=== PATIENT | male | born 1945 | race Caucasian/White ===

== ENCOUNTER → 2016-09-25 | Outpatient (CLI) | payer OTHER ==
--- NOTE | 2016-09-26 06:32 | DI ---
XR KNEE CMPT 4 OR MORE VWS,09/25/2016 2:53 PM: Clinical History: Left knee pain Previous Exam: None at this facility. Findings: 3 views the left knee are obtained, and demonstrate anatomic alignment without fractures. There is lo ss of joint space within the left medial compartment. Sclerosis and osteophyte formation are noted. Peripheral vascular calcifications are seen. There is no evidence of knee joint effusion. Impression: Tricompartmental degenerative disc disease worst within the medial compartment.
== END ==
LOC: ORTHO 15:09
PROVIDERS: ATTEND Orthopaedic Surgery
DX: M25.562 Pain in left knee (principal); M17.12 Unilateral primary osteoarthritis, left knee
CPT/HCPCS: 73564

== ENCOUNTER → 2016-10-03 | Outpatient (CLI) | payer OTHER ==
--- NOTE | 2016-10-04 08:57 | DI ---
CT LOWER EXTR W/O CONTRAST,10/03/2016 12:49 PM: Clinical History: Primary osteoarthritis of the left knee. Previous Exam: None at this facility. Findings: Multiple helically acquired CT images are obtained through the left lower extremity without contrast. The left hip is within normal limits except for some mild degenerative osteoarthritis. The left knee demonstrates tricompartmental degenerative osteoarthritis. There is a small left knee j oint effusion. Multiple osteophytes are seen. There are some subchondral cysts noted. Peripheral vas cular calcifications are also noted. Evaluation of the left ankle demonstrate mild degenerative orlando es. There are some subchondral cysts noted as well. The ankle is within normal limits. Impression: Degenerative changes of the left hip knee and ankle worst involving the knee.
== END ==
LOC: CT 12:37
PROVIDERS: ATTEND Orthopaedic Surgery
DX: M25.562 Pain in left knee (principal); M17.12 Unilateral primary osteoarthritis, left knee; M25.462 Effusion, left knee
CPT/HCPCS: 73700

== ENCOUNTER 2016-11-14 05:56 | Inpatient (IN) ==
[2016-11-14] MEDS ORDERED: ceFAZolin Inj 2gm (Premix) 2 GM/50 ML BAG IV ONE ×2 (05:59→06:00)
[2016-11-14] MEDS ORDERED: Lactated Ringers 1,000 ML PRIMARY IV ONE ×3 (05:59→10:14)
[2016-11-14] MEDS ORDERED: LIDOCAINE W/ SODIUM BICARB 0.5 ML SYR ONE (05:59)
[2016-11-14] MEDS ORDERED: BUPivacaine Liposome/PF (Exparel) Inj 20ml vial INFIL ONE ×2 (06:00→06:52)
[2016-11-14] MEDS ORDERED: Tranexamic Acid 3,000 MG in Sodium Chloride 0.9% 100 ML IRRIG ONE ×2 (06:00→08:00)
[2016-11-14] MEDS ORDERED: Ketorolac Inj 30 MG, Morphine Inj 5 MG, BUPivacaine Inj 0.25% PF 150 MG SPLASH ONE ×6 (06:00)
[2016-11-14] MEDS ORDERED: LIDOCAINE W/ SODIUM BICARB 0.5 ML SYR SUBD ONE (06:00)
[2016-11-14] MEDS ORDERED: Lactated Ringers 1,000 ML PRIMARY IV SCH ×2 (06:00→08:30)
[2016-11-14] MEDS ORDERED: Gentamicin Inj 40 MG/ML VIAL ONE (06:52)
[2016-11-14] MEDS ORDERED: Sodium Chloride 0.9% vial 10 ML ONE (06:52)
[2016-11-14] MEDS ORDERED: Bacteriostatic NaCl Inj 30ml Vial ONE (06:52)
[2016-11-14] MEDS ORDERED: BUPIVACAINE 0.25% W/ EPI - 10 ML VIAL ONE (07:10)
[2016-11-14] MEDS ORDERED: fentaNYL Inj 100 MCG/2 ML VIAL ONE (07:10)
[2016-11-14] MEDS ORDERED: BUPivacaine Inj 0.25% PF - 10ml vial ONE (07:10)
[2016-11-14] MEDS ORDERED: MIDAZOLAM 5 MG/1 ML ONE (07:10)
[2016-11-14] MEDS ORDERED: Propofol 200 MG/20 ML VIAL IV ONE (07:43)
[2016-11-14] MEDS ORDERED: HYDROmorphone 2 MG/1 ML ONE (08:03)
[2016-11-14] MEDS ORDERED: Sodium Chloride 0.9% 500 ML ONE (08:16)
[2016-11-14] MEDS ORDERED: Sodium Chloride 0.9% 0 ML ONE (08:17)
--- NOTE | 2016-11-14 08:19 | CRNA.PROCE ---
Nerve Block Documentation - - Safety Measures: Time Out Taken, Site Verified - - Type of Nerve Block Used: Left Sciatic Nerve Block Position for Nerve Block: Lateral Moniters Used During Block: EKG, SPO2, NIBP Sedation Used - Enter Amount in Comment Field [ANES.SEDAT]: Midazolam (mg): Yes (3mg iv), Fentanyl (mcg): Yes (100mcg iv) Skin Prep Used: ChloroPrep Technique: Nerve Stimulator Nerve Block Needle Used: 100 mm ProBlk II Stimulation Hz: 1.0 Stimulation Staring mA: 1.4 Stimulation Ending mA: 0.5 Local Anesthetic - Enter Amt in Comment Field [ANES.LOCNB]: 0.25 % Bupivacaine Plain (mL): Yes (15ml) Anesthesia Time - Other Weight: 98.43 kg Height: 5 ft 10 in Body Mass Index (BMI): 31.1
--- NOTE | 2016-11-14 08:20 | CRNA.PROCE ---
Nerve Block Documentation - - Safety Measures: Time Out Taken, Site Verified - - Type of Nerve Block Used: Left Femoral Nerve Block Position for Nerve Block: Supine Moniters Used During Block: EKG, SPO2, NIBP Oxygen Sumpplented: Yes Skin Prep Used: ChloroPrep Technique: Nerve Stimulator Nerve Block Needle Used: 80 mm ProBlk II Stimulation Hz: 1.0 Stimulation Staring mA: 1.2 Stimulation Ending mA: 0.5 Local Anesthetic - Enter Amt in Comment Field [ANES.LOCNB]: 0.25 % Bupivicaine with Epinephrine 1:200,000 (mL): Yes (30ml) Anesthesia Time - Other Weight: 98.43 kg Height: 5 ft 10 in Body Mass Index (BMI): 31.1
[2016-11-14] MEDS ORDERED: HYDROmorphone 2 MG/1 ML IVP PRN ×2 (08:21→12:17)
[2016-11-14] MEDS ORDERED: PROMETHAZINE 25 MG/1 ML VIAL IM PRN (08:21)
[2016-11-14] MEDS ORDERED: fentaNYL Inj 100 MCG/2 ML VIAL IVP PRN (08:21)
[2016-11-14] MEDS ORDERED: NORMAL SALINE 10 ML SYRINGE FLUSH IVP PRN (08:21)
--- NOTE | 2016-11-14 08:21 | CRNA.PROGR ---
Anesthesia Time - - Start date: 11/14/16 End date: 11/14/16 - Procedure/Recovery Time Anesthesia : Time In: 07:50 Anesthesia : Time Out: 11:30 Anesthesia : Total Time: 220 - Block Time PreOp Block : Time In: 07:15 PreOp Block : Time Out: 07:35 PreOp Block : Total Time: 20 - Total Anesthesia Time Total Anesthesia Time (minutes): 240 - Other Weight: 98.43 kg Height: 5 ft 10 in Body Mass Index (BMI): 31.1 Physical Status: P3 Anesthesia Type: General Anesthesia : LMA (SNB and FNB for post op analgesia) PostOp Pain Management: Femoral (Single Injection)
[2016-11-14] MEDS ORDERED: ONDANSETRON 4 MG/2 ML VIAL ONE (10:54)
--- NOTE | 2016-11-14 11:41 | CRNA.PROGR ---
Anesthesia Recovery Phase I - Post Anesthesia Evaluation Patient's Condition on Arrival in Phase I: Stable Pain Level: 0
[2016-11-14] MEDS ORDERED: BISACODYL 5 MG TABLET PO PRN (12:17)
[2016-11-14] MEDS ORDERED: Ondansetron ODT Tab 8 MG TAB PO PRN (12:17)
[2016-11-14] MEDS ORDERED: BISACODYL 10 MG SUPPOSITORY RECTAL PRN (12:17)
[2016-11-14] MEDS ORDERED: ONDANSETRON 4 MG/2 ML VIAL IVP PRN (12:17)
[2016-11-14] MEDS ORDERED: Prochlorperazine Tab 10 MG TAB PO PRN (12:17)
[2016-11-14] MEDS ORDERED: diphenhydrAMINE 25 MG CAPSULE PO PRN (12:17)
[2016-11-14] MEDS ORDERED: MAG HYDROX/AL HYDROX/SIMETH 30 ML SUSP PO PRN (12:17)
[2016-11-14] MEDS ORDERED: CALCIUM CARBONATE 500 MG (TUMS) CHEWABLE TABLET PO PRN (12:17)
[2016-11-14] MEDS ORDERED: ACETAMINOPHEN 325 MG TABLET PO PRN (12:17)
[2016-11-14] MEDS: GABAPENTIN 300 MG CAPSULE PO SCH ×2 (14:04→20:25)
[2016-11-14] MEDS: Lactated Ringers 1,000 ML PRIMARY IV SCH (14:05)
[2016-11-14] MEDS: ceFAZolin Inj 2gm (Premix) 2 GM/50 ML BAG IV SCH ×2 (15:00→23:51)
--- NOTE | 2016-11-14 15:36 | ORTHO.PROG ---
Last Taken Vital Signs: Vital Signs - Last Taken Temperature 97.6 F 11/14/16 14:00 Pulse Rate 72 11/14/16 14:00 Respiratory Rate 18 11/14/16 14:00 Blood Pressure 121/76 11/14/16 14:00 Pulse Ox 94 11/14/16 14:00 Subjective: Patient doing well after total knee replacement on left. Patient denies any pain Objective: Dressing is clean and dry ices in place he does have motor of the ankle and toes but denies any sensory pain or sensation with palpation. Good pulses brisk refill. Vital Signs (24 hrs) Temp Pulse Pulse Resp BP BP Pulse Ox 11/14/16 14:00 97.6 F 72 18 121/76 94 11/14/16 13:30 68 16 116/72 93 11/14/16 13:15 97.6 F 71 16 131/75 93 11/14/16 13:00 73 16 134/56 93 11/14/16 12:45 97.6 F 68 16 124/82 93 11/14/16 12:40 97.7 F 12 93 11/14/16 12:30 60 16 135/80 93 11/14/16 12:19 97.6 F 68 16 126/77 94 11/14/16 12:04 97.7 F 67 12 120/74 93 11/14/16 12:00 67 12 130/71 96 11/14/16 11:56 67 19 98 11/14/16 11:55 67 12 132/73 96 11/14/16 11:54 64 13 132/73 93 11/14/16 11:50 65 12 127/77 95 11/14/16 11:44 56 L 12 119/75 100 11/14/16 11:40 97.2 F 59 L 14 111/64 98 11/14/16 11:34 67 12 125/75 94 11/14/16 11:30 96.9 F 63 12 132/88 93 11/14/16 07:04 97.6 F 70 14 146/84 94 Assessment: Left total knee replacement doing well Plan: Patient will begin physical therapy and occupational therapy, he needs to have an immobilizer put in place to prevent injury since he has a femoral and sciatic nerve block. Pain control and DVT prophylaxis with Coumadin since he takes is for atrial fibrillation.
--- NOTE | 2016-11-14 15:37 | ORTHO.OP ---
- - -: See Dictated Operative Report (Total knee replacement CPT code 33161, equal opportunity assistant surgeon Phoebe JONES)
[2016-11-14] MEDS: DOCUSATE 100 MG CAPSULE PO SCH (20:25)
[2016-11-14] MEDS: ATORVASTATIN 10 MG TABLET PO SCH (20:25)
[2016-11-14] MEDS ORDERED: Warfarin Tab 3 MG TAB PO SCH (21:00)
[2016-11-14] MEDS ORDERED: Warfarin 5 MG TAB PO SCH (21:00)
[2016-11-15] MEDS: Lactated Ringers 1,000 ML PRIMARY IV SCH (01:30)
[2016-11-15] MEDS: HYDROcodone-APAP 7.5 MG-325 MG TABLET PO PRN ×5 (02:32→20:40)
[2016-11-15 04:42] LABS: Hematocrit [HCT] 36.4 % (42.0-52.0); Hemoglobin [HGB] 12.3 g/dL (14.0-18.0); MEAN CORPUSCULAR HEMOGLOBIN 29.9 PG (27-31); MEAN CORPUSCULAR HGB CONC 33.8 g/dL (33-37); MEAN CORPUSCULAR VOLUME 88.6 FL (80-90); RED BLOOD COUNT 4.11 10^6/uL (4.70-6.10)
[2016-11-15 05:53] LABS: BLOOD UREA NITROGEN 15 mg/dL (7-22); BUN/CREATININE RATIO 21.42 (6-20)
--- NOTE | 2016-11-15 07:55 | ORTHO.PROG ---
Last Taken Vital Signs: Vital Signs - Last Taken Temperature 98.3 F 11/15/16 03:59 Pulse Rate 86 11/15/16 03:59 Respiratory Rate 16 11/15/16 03:59 Blood Pressure 130/78 11/15/16 03:59 Pulse Ox 93 11/15/16 04:02 Subjective: Patient with a little pain bilaterally in the back of the knee otherwise is doing well. Patient has knee immobilizer in place Objective: Patient with good motion of foot and ankle. Dressing is clean and dry. Knee immobilizer placed. No calf, popliteal adductor hiatus or thigh pain or discomfort Laboratory Results 11/15/16 11/15/16 Range/Units 04:39 04:39 WBC 9.73 (4.8-10.8) 10^3/uL RBC 4.11 L (4.70-6.10) 10^6/uL Hgb 12.3 L (14.0-18.0) g/dL Hct 36.4 L (42.0-52.0) % MCV 88.6 (80-90) FL MCH 29.9 (27-31) PG MCHC 33.8 (33-37) g/dL RDW Std Deviation 43.8 (39-50) fL RDW Coeff of Aminata 13.8 (11.5-14.5) % Plt Count 235 (140-350) 10*3/uL MPV 11.0 (7.4-12.2) FL Sodium 135 (135-145) meq/L Potassium 3.5 L (3.8-5.2) meq/L Chloride 101 (98-112) meq/L Carbon Dioxide 26 (23-33) meq/L Anion Gap 8 (5-20) BUN 15 (7-22) mg/dL Creatinine 0.7 (0.70-1.50) mg/dL BUN/Creatinine Ratio 21.42 H (6-20) Glucose 114 H (78-110) mg/dL Calculated Osmolality 281.0 (267-292) mOsm/kg Calcium 9.4 (8.7-10.7) mg/dL Vital Signs (24 hrs) Temp Pulse Pulse Resp BP BP Pulse Ox 11/15/16 04:02 93 11/15/16 03:59 98.3 F 86 16 130/78 93 11/15/16 00:01 99.0 F 79 20 127/86 92 11/14/16 20:31 97.9 F 80 20 148/92 92 11/14/16 17:00 97.6 F 74 18 146/98 92 11/14/16 15:00 91 11/14/16 14:00 97.6 F 72 18 121/76 94 11/14/16 13:30 68 16 116/72 93 11/14/16 13:15 97.6 F 71 16 131/75 93 11/14/16 13:00 73 16 134/56 93 11/14/16 12:45 97.6 F 68 16 124/82 93 11/14/16 12:40 97.7 F 12 93 11/14/16 12:30 60 16 135/80 93 11/14/16 12:19 97.6 F 68 16 126/77 94 11/14/16 12:04 97.7 F 67 12 120/74 93 11/14/16 12:00 67 12 130/71 96 11/14/16 11:56 67 19 98 11/14/16 11:55 67 12 132/73 96 11/14/16 11:54 64 13 132/73 93 11/14/16 11:50 65 12 127/77 95 11/14/16 11:44 56 L 12 119/75 100 11/14/16 11:40 97.2 F 59 L 14 111/64 98 11/14/16 11:34 67 12 125/75 94 11/14/16 11:30 96.9 F 63 12 132/88 93 Assessment: Left total knee replacement doing well Plan: Patient will continue with physical therapy and occupational therapy. Yesterday beverages had stand by the side of the bed but we will progress with activities today. As far as anticoagulation he'll continue on his Coumadin normal dosing discussed with the hospitalist. We'll proceed along these lines at the current time.
--- NOTE | 2016-11-15 08:36 | DI ---
XR KNEE 1 OR 2 VWS,11/14/2016 11:15 AM: Clinical History: Total knee arthroplasty. Previous Exam: September 25, 2016 Findings: 2 views of the left knee are obtained, and demonstrate postsurgical changes consistent with a left to carrillo knee arthroplasty. There is some air within the superior patellar bursa. Peripheral vascular calcifications are noted. No fractures are seen. Impression: Postsurgical changes consistent with recent left total knee arthroplasty.
[2016-11-15] MEDS: METOPROLOL SUCCINATE 100 MG SR 24H TABLET PO SCH (09:03)
[2016-11-15] MEDS: DOCUSATE 100 MG CAPSULE PO SCH ×2 (09:03→20:40)
[2016-11-15] MEDS: HYDROCHLOROTHIAZIDE 25 MG TABLET PO SCH (09:03)
[2016-11-15] MEDS: BENAZEPRIL 10 MG TABLET PO SCH (09:04)
[2016-11-15] MEDS: GABAPENTIN 300 MG CAPSULE PO SCH ×3 (09:04→20:40)
[2016-11-15] MEDS: DIGOXIN 250 MCG TABLET PO SCH (09:04)
[2016-11-15] MEDS: metFORMIN ER 500 MG TABLET PO SCH (09:08)
[2016-11-15] MEDS ORDERED: FUROSEMIDE 10 MG/1 ML - 4 ML IVP ONE (12:15)
--- NOTE | 2016-11-15 13:02 | CONSULT ---
Consult Note - Consult Reason for Consult: PostOp Consulation : Ortho Requesting Physician: estrada Primary Care Provider: Miguel Ware HPI - History of Present Illness History of Present Illness: This very nice 71-year-old gentleman who lives in [place] he just underwent a left total knee hospitalist services were consult for history of A. fib patient on Coumadin. Patient is having no issues no chest pain nausea vomiting doing well postop Past Medical History Medical History: Measles, mumps, A. fib, gastritis, diabetes type II, hypertension Surgical History: Left total knee, colonoscopy, EGD, vasectomy back surgery in the past Tobacco Use: Former Smoker In the Past 12 Months, Have Used or Abuse Any of the Following Substance: None Review of Systems - Review of Systems All Systems: Reviewed & No Additional Complaints Except as Stated - Mouth/Throat Mouth/Throat Exam: DENIES: Negative System Review, Dental Problems, Oral Ulcers , Sore Throat, Hoarseness, Dysphagia, Dental Pain, Other, See HPI - Respiratory Respiratory: DENIES: Negative System Review, Cough, Sputum, Dyspnea At Rest, Dyspnea with Exertion, Pleuritic Pain, Hemoptysis, Wheezing, Other, See HPI - Gastrointestinal Gastrointestinal / Abdominal: DENIES: Negative System Review, Nausea, Vomiting, Diarrhea, Constipation, Abdominal Pain, Bloody Stool, Poor Appetite, Heartburn, Regurgitation, Bloating, Lactose Intolerance, Melena, Bright Red Blood per Rectum, Other, See HPI - Genitourinary Genitourinary: DENIES: Negative System Review, Pain, Burning, Hematuria, Incontinence, Urgency, Hesitant Stream, Decreased Stream, Nocutria, Discharge, Sexual Dysfunction, Other, See HPI Medication / Allergies Home Medications: Home Medications Medication Instructions Recorded Confirmed Type Amlodipine Besylate/Benazepril 1 cap PO DAILY cap 09/25/16 11/14/16 History [Lotrel] Atorvastatin Calcium [Lipitor] 1 tab PO QHS tab 09/25/16 11/14/16 History Digoxin 1 tab PO DAILY tab 09/25/16 11/14/16 History Gabapentin [Neurontin] 1 cap PO TID cap 09/25/16 11/14/16 History Hydrochlorothiazide 1 tab PO DAILY tab 09/25/16 11/14/16 History Metformin HCl [Metformin Hcl Er] 3 tab PO DAILY tab 09/25/16 11/14/16 History Metoprolol Succinate [Toprol Xl] 1 tab PO DAILY tab 09/25/16 11/14/16 History Warfarin Sodium 1 tab PO as directed tab 09/25/16 11/14/16 History Warfarin Sodium [Coumadin] 1 tab PO DAILY tab 09/25/16 11/14/16 History Mupirocin Nasal Oint 2% [Bactroban 1 gm TRAMAINE BID 10/19/16 10/19/16 History Nasal Oint 2%] Allergies/Adverse Reactions: Allergies 3 Allergy/AdvReac Type Severity Reaction Status Date / Time No Known Allergies Allergy Verified 11/14/16 18:42 Exam - Vitals Vital Signs: Vital Signs Temperature 98.2 F Temperature Source Temporal Artery Scan Pulse Rate [Pulse Oximeter] 73 Pulse Rate 88 Respiratory Rate 18 Blood Pressure [Left Arm] 135/84 Blood Pressure [Right Arm] 133/77 Blood Pressure 120/74 Pulse Ox 94 Oxygen Flow Rate 1 Oxygen Delivery Method Nasal Cannula Height 5 ft 10 in Weight 217 lb - General General Appearance: No Acute Distress, Cooperative - Head Head Exam: Normal Inspection, Normocephalic - Respiratory Respiratory Exam: POSITIVE: Clear to Auscultation - Bilaterally, Breathing Non Labored, Normal To Percussion, Normal to Percussion and Palpation - Cardiovascular Cardiovascular Exam: POSITIVE: RRR, No Murmur, No Clicks, No Gallops - GI/Abdominal GI/Abdominal Exam: POSITIVE: Non Tender, Non Distended, Soft - Extremities Extremities Exam: POSITIVE: No Clubbing Present, +2 Edema - Neurological Neurological Exam: POSITIVE: Alert, Oriented x 3, Reflexes Normal, CN II-XII Intact Results - Labs CBC and BMP: 11/15/16 04:39 11/15/16 04:39 Assessment and Plan - Patient Problems (1) Status post total left knee replacement Current Visit: Yes Status: Acute Code(s): Z96.652 - Presence of left artificial knee joint (2) Hypertension Current Visit: Yes Status: Acute Comment: Controlled continue current meds patient on a beta darleen and the Lotrel Code(s): I10 - Essential (primary) hypertension (3) A-fib Current Visit: Yes Status: Acute Comment: Resume Coumadin patient does not need bridging also resume digoxin check daily INR Code(s): I48.91 - Unspecified atrial fibrillation
--- NOTE | 2016-11-15 13:33 | PT.PROG ---
Progress Note Progress Note: S: Miguel reports that he is regaining sensation and that he can now feel most of his ant thigh and foot. He also reports increasing pain levels in his L knee as he regains sensation. O: Treatment consisted of: sit to stand transfer to AD with min assist x2; ambulation with AD and min assist x2; 20ft. Miguel was left in hospital bed; bed alarm on and call light within reach. A: Miguel tolerated therapy well today. Miguel has difficulty with ambulation secondary to lack of sensation in his LLE due to nerve block. Miguel needs assistance with bed mobility to lift his LLE. P: Continue POC as tolerated.
--- NOTE | 2016-11-15 13:57 | CRNA.PROGR ---
Anesthesia Note - Progress Notes Anesthesia Progress Note: Up in wheel chair working with PT at this time. SNB/FNB have fully resolved. He has no questions or concerns regarding his anesthetic course. CBC and BMP 11/15/16 04:39 11/15/16 04:39 Vital Signs (24 hrs) Temp Pulse Pulse Resp BP BP Pulse Ox 11/15/16 12:40 98.2 F 73 18 135/84 94 11/15/16 09:04 88 11/15/16 08:11 98.0 F 89 20 133/77 94 11/15/16 04:02 93 11/15/16 03:59 98.3 F 86 16 130/78 93 11/15/16 00:01 99.0 F 79 20 127/86 92 11/14/16 20:31 97.9 F 80 20 148/92 92 11/14/16 17:00 97.6 F 74 18 146/98 92 11/14/16 15:00 91 11/14/16 14:00 97.6 F 72 18 121/76 94
--- NOTE | 2016-11-15 14:37 | PTI REPORT ---
Thank you for the referral of Miguel Randolph. He was seen on 11/14/16 for an inpatient evaluation status post left total knee arthroplasty. SUBJECTIVE: The patient is a 71-year-old male. The patient reports that he is feeling okay after surgery and that he is experiencing a pain level of 0/10 on the verbal analog scale (0=no pain, 10=worst pain). The patient denies experiencing any symptoms of dizziness. The patient states that he currently has sensation in his toes and proximal thigh but the rest of his left lower extremity is completely numb. The patient states he lives in a single floor house with three steps to enter the front door and a railing on either side. In his bathroom the patient has a countertop next to his toilet that he can use for assistance with transfers. PAST MEDICAL HISTORY: Past medical history can be found in the patient's medical record. OBJECTIVE FINDINGS: General observations: The patient was alert and oriented and lying supine in bed on three liters of oxygen. Bed mobility: The patient required mod assist to transfer from supine to sitting edge of bed. Transfer: The patient required mod assist to transfer from sit to stand. The patient denied experiencing symptoms of dizziness throughout transfers. Vitals: The patient's blood pressure in supine was 140/81. His blood pressure in seated position edge of bed was 150/108. After resting for two minutes his blood pressure went down to 155/80. The patient's blood pressure in standing was 155/88. ASSESSMENT: The patient has a good prognosis. Problem List: Pain in the left lower extremity Decreased passive and active range of motion in the left lower extremity Decreased strength in the left lower extremity Patient must adhere to total knee precautions Short-Term Goals: To be met by discharge from inpatient: Patient will be able to transfer from bed to stand independently. Patient will be able to ambulate approximately 100 feet with walker, weight- bearing as tolerated. Patient will be able to ascend and descend five stairs with walker, weight- bearing as tolerated. Patient will be instructed in total knee precautions. Long-Term Goals: To be met following discharge from inpatient: Patient will be seen by outpatient physical therapy. TREATMENT PLAN: Patient will be seen B.I.D during the week and one time per day over the weekend as an inpatient for transfers, gait training, stair training, and instruction in total knee precautions. INITIAL TREATMENT: Treatment today consisted of the initial evaluation followed by the patient transferring from supine to sit with mod assist x2 and from sit to stand with mod assist x2. Following treatment the patient was returned to his hospital bed and was left with bed alarm on and call light within reach. Dictated by: BRIJESH Lee Supervised by: DENNY Henderson
--- NOTE | 2016-11-15 15:09 | PT.PROG ---
Progress Note Progress Note: S. Patient stated that he is sore this afternoon. He reports he has some pain in the back of his knee and above his knee. O. Patient was wheeled to the therapy gym by OT and had heat and then performed supine exercises in the form of; heel slides, quad sets, ankle pumps, short arc quads all x 10, sit to stands x 5. then ambulated 50 feet to the wheelchair and was returned to his room where he was left in bed with alarm and call light and Ice on his knee. A. 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 Patient would continue to benefit from skilled therapy at this time. P. Continue POC.
--- NOTE | 2016-11-15 16:31 | ORTHO.PROG ---
Last Taken Vital Signs: Vital Signs - Last Taken Temperature 98.7 F 11/15/16 15:39 Pulse Rate 74 11/15/16 15:39 Respiratory Rate 18 11/15/16 15:39 Blood Pressure 150/92 11/15/16 15:39 Pulse Ox 92 11/15/16 15:39 Subjective: Patient doing well with physical therapy pain is well-controlled Objective: Examination shows that the dressing is clean and dry knee immobilizers in place he has good dorsiflexion and plantarflexion of the foot and ankle normal sensory exam. He does have 1+ pitting edema. Vital Signs Temperature 98.7 F Temperature Source Oral Pulse Rate [Pulse Oximeter] 74 Pulse Rate 88 Respiratory Rate 18 Blood Pressure [Left Arm] 135/84 Blood Pressure [Right Arm] 150/92 Blood Pressure 120/74 Pulse Ox 92 Oxygen Flow Rate 4 Oxygen Delivery Method Nasal Cannula Height 5 ft 10 in Weight 101.06 kg Patient's initial weighted time of admission was 96 kg Assessment: Left total knee replacement Plan: The patient is currently being diuresed which I think will be helpful certainly try to get down to his preoperative body weight. Patient will continue with physical therapy and occupational therapy. Anticoagulation for his atrial fibrillation should cover the total knee replacement. Patient has apparently had intermittent oxygenation knees and this is likely certainly affected from of the surgery and anesthetic current hydration medication usage and anemia. We 'll continue to follow him closely.
[2016-11-15] MEDS: ATORVASTATIN 10 MG TABLET PO SCH (20:40)
[2016-11-15] MEDS: Warfarin 5 MG TAB PO SCH (20:40)
[2016-11-16 05:21] LABS: Hematocrit [HCT] 40.1 % (42.0-52.0); Hemoglobin [HGB] 13.5 g/dL (14.0-18.0); MEAN CORPUSCULAR HEMOGLOBIN 29.4 PG (27-31); MEAN CORPUSCULAR HGB CONC 33.7 g/dL (33-37); MEAN CORPUSCULAR VOLUME 87.4 FL (80-90); MEAN PLATELET VOLUME 10.5 FL (7.4-12.2); RED BLOOD COUNT 4.59 10^6/uL (4.70-6.10)
[2016-11-16 05:27] LABS: BLOOD UREA NITROGEN 12 mg/dL (7-22); BUN/CREATININE RATIO 17.14 (6-20)
[2016-11-16] MEDS ORDERED: FUROSEMIDE 10 MG/1 ML - 4 ML IVP ONE (08:37)
[2016-11-16] MEDS: BENAZEPRIL 10 MG TABLET PO SCH (08:52)
[2016-11-16] MEDS: metFORMIN ER 500 MG TABLET PO SCH (08:52)
[2016-11-16] MEDS: HYDROCHLOROTHIAZIDE 25 MG TABLET PO SCH (08:53)
[2016-11-16] MEDS: GABAPENTIN 300 MG CAPSULE PO SCH ×3 (08:53→22:00)
[2016-11-16] MEDS: DOCUSATE 100 MG CAPSULE PO SCH ×2 (08:53→22:00)
[2016-11-16] MEDS: DIGOXIN 250 MCG TABLET PO SCH (08:53)
[2016-11-16] MEDS: METOPROLOL SUCCINATE 100 MG SR 24H TABLET PO SCH (08:53)
[2016-11-16] MEDS: HYDROcodone-APAP 7.5 MG-325 MG TABLET PO PRN ×3 (08:57→22:01)
[2016-11-16] MEDS: POTASSIUM CHLORIDE 20 MEQ TAB PO SCH ×2 (10:29→22:00)
[2016-11-16] MEDS: NORMAL SALINE 10 ML SYRINGE FLUSH IVP PRN (10:29)
--- NOTE | 2016-11-16 11:11 | PT.PROG ---
Progress Note Progress Note: S. Patient stated that he is very sore this morning. O. Patient was wheeled to therapy by OT then had heat and micro massage to decrease pain and edema. Patient then performed exercises in the form of; heel slides, quad sets, ankle pumps, short arc quads, all x 10 then performed sit to stands x 5 and then ambulated 70 feet to the wheelchair and was wheeled back to his room where he was left in the restroom and nursing was notified. A. 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 Patient requires mod assist with sit to stand transfers and supine to sit transfers. Patient continues min assist with ambulation. Patient would continue to benefit from skilled therapy. P. continue POC.
--- NOTE | 2016-11-16 12:19 | PDOC(PROG) ---
Interval History: Patient is doing much better with the great diuresis with the Lasix he feels his mobility is improved still very weak though denies chest pain nausea or vomiting Objective : Data - Labs CBC and BMP: 11/16/16 05:11 11/16/16 05:11 Objective : Exam - General General Appearance: Cooperative - Head Head Exam: Normal Inspection, Atraumatic - Neck Neck Exam: Normal Inspection - Respiratory Respiratory Exam: Clear to Auscultation - Bilaterally, Breathing Non Labored, Normal To Percussion - Cardiovascular Cardiovascular Exam: RRR, No Murmur, No Clicks, No Gallops - GI/Abdominal GI/Abdominal Exam: Non Tender, Non Distended, Soft - Extremities Extremities Exam: +1 Edema Assessment and Plan - Patient Problems (1) Status post total left knee replacement Current Visit: Yes Status: Acute Comment: Defer to orthopedic surgery Code(s): Z96.652 - Presence of left artificial knee joint (2) Hypertension Current Visit: Yes Status: Acute Comment: Stable and controlled Code(s): I10 - Essential (primary) hypertension (3) A-fib Current Visit: Yes Status: Acute Comment: Continue current medication Code(s): I48.91 - Unspecified atrial fibrillation (4) Edema Current Visit: Yes Status: Acute Comment: Continue IV Lasix patient still has +1 edema Code(s): R60.9 - Edema, unspecified (5) Hypokalemia Current Visit: Yes Status: Acute Comment: Replace by mouth Code(s): E87.6 - Hypokalemia
--- NOTE | 2016-11-16 14:00 | ORTHO.PROG ---
Last Taken Vital Signs: Vital Signs - Last Taken Temperature 97.9 F 11/16/16 12:34 Pulse Rate 85 11/16/16 12:34 Respiratory Rate 20 11/16/16 12:34 Blood Pressure 131/74 11/16/16 12:34 Pulse Ox 95 11/16/16 12:34 Subjective: Patient notes pain controlled on oral medications and is progressing well with physical therapy. No shortness of breath or chest pain, no fevers chills or night sweats. Objective: Dressing is clean and dry incision is clean and dry patient with a trace to 1+ edema bilaterally symmetric he has close to full extension short by about 5 sitting is in a knee immobilizer. Flexion little stiff at the current time but continued to 60 quite easily. Ligamentously stable, popliteal adductor hiatus or thigh pain. Laboratory Results 11/16/16 11/16/16 11/16/16 Range/Units 05:11 05:11 05:11 WBC 10.79 (4.8-10.8) 10^3/uL RBC 4.59 L (4.70-6.10) 10^6/uL Hgb 13.5 L (14.0-18.0) g/dL Hct 40.1 L (42.0-52.0) % MCV 87.4 (80-90) FL MCH 29.4 (27-31) PG MCHC 33.7 (33-37) g/dL RDW Std Deviation 43.3 (39-50) fL RDW Coeff of Aminata 13.7 (11.5-14.5) % Plt Count 236 (140-350) 10*3/uL MPV 10.5 (7.4-12.2) FL PT 11.2 (9.7-11.4) secs INR 1.06 (0.00-5.90) N/A Sodium 137 (135-145) meq/L Potassium 3.2 L (3.8-5.2) meq/L Chloride 95 L (98-112) meq/L Carbon Dioxide 31 (23-33) meq/L Anion Gap 11 (5-20) BUN 12 (7-22) mg/dL Creatinine 0.7 (0.70-1.50) mg/dL BUN/Creatinine Ratio 17.14 (6-20) Glucose 167 H (78-110) mg/dL Calculated Osmolality 287.0 (267-292) mOsm/kg Calcium 10.1 (8.7-10.7) mg/dL Vital Signs (24 hrs) Temp Pulse Pulse Resp BP BP Pulse Ox 11/16/16 12:34 97.9 F 85 20 131/74 95 11/16/16 08:53 80 11/16/16 08:30 97.5 F 57 L 20 112/88 94 11/16/16 05:24 92 11/16/16 04:43 98.8 F 99 20 148/85 92 11/16/16 00:02 97.9 F 84 22 137/68 94 11/15/16 20:24 99.2 F 61 22 155/84 98 11/15/16 19:00 74 18 11/15/16 15:39 98.7 F 74 18 150/92 92 Assessment: Left total knee replacement doing well Plan: Patient will continue with physical therapy and occupational therapy. INR is slowly increasing. Continue on Coumadin. Pain control on oral medication, possible swing bed.
--- NOTE | 2016-11-16 14:27 | OTI REPORT ---
Thank you for the referral of Miguel Randolph. He was seen on 11/15/16 for an occupational therapy inpatient evaluation status post left total knee arthroplasty. SUBJECTIVE: The patient is a 71-year-old male [place] Prior to admission the patient was having difficulty dressing his left lower extremity and difficulty putting on socks secondary to the knee pain. The patient states he was independent with most activities including driving, getting around his home, dressing minus the socks, and showers. The patient's main goal is to be as independent and safe as possible. They are not around a lot of resources for adaptive equipment and will have to travel for therapy. PAST MEDICAL HISTORY: Past medical history can be found in the patient's medical record. OBJECTIVE FINDINGS: Activities of daily living: Today the patient required mod assist for lower extremity dressing. He was instructed in the use of a supervisor aluminum fabrication, a sock aide, a bath sponge, and a long handled shower hose. The patient stated that all would be beneficial for him at home. We practiced using the supervisor aluminum fabrication to don shorts as well as doff socks. He required mod assist to use the sock aide to don sock on left lower extremity. The patient was also issued a high rise toilet seat as well as a bath chair. The patient states that he just has a standard toilet at home as well as a walk in shower with no grab bars and no shower chair. ASSESSMENT: The patient would benefit from the adaptive equipment that he was issued for safety and independence at home. The patient would also benefit from another OT session in order to review adaptive devices and to have him dress with the supervisor aluminum fabrication and sock aide. Problem List: Decreased ability to perform functional transfers Decreased ability to perform activities of daily living Short-Term Goals: To be met by discharge from inpatient: Patient will be able to use a supervisor aluminum fabrication independently. Patient will be able to use a sock aide independently. Patient will be able to complete a toilet transfer and all toileting activities independently. Patient will be able to complete a bath transfer with stand by assistance. Long-Term Goals: To be met following discharge from inpatient: Patient will be independent and safe with all functional abilities and dressing with modified independence before returning home. TREATMENT PLAN: Patient will be seen B.I.D during the week and one time per day over the weekend as an inpatient to address the above goals and objectives. INITIAL TREATMENT: Treatment today consisted of the evaluation followed by the patient participating in use of adaptive equipment. He still requires mod assist with use of equipment for lower extremity dressing. SILVIA
--- NOTE | 2016-11-16 14:59 | OT.PROG ---
Progress Note Progress Note: S: pt stated that he didn't think he needed pain meds but eventually thought it may be a good idea. Pt reports having difficulty making it to restroom in time. O: pt was seen in his room in the a.m. He completed toilet transfer and completed toileting with Ind but did need Min A to marion LE garments while in restroom. Pt transferred to sink for hygiene activity and stood for 2-3 min before transferring to chair. He completed doffing of socks with insecticide maker and donning of socks with sock aid after demonstration. He donned LE shorts with cues and use of insecticide maker and UE shirt Ind. Pt transferred approx 3-4 ft to w/c before being transferred downstairs to therapy. A: pt may continue to benefit from therapy to increase strength and functional mobility post TKA. He may possibly benefit from SB status if he does not progress and gain more strength over the next day or two. P: continue per POC.
--- NOTE | 2016-11-16 16:29 | PT.PROG ---
Progress Note Progress Note: S: Miguel reports that he is feeling very sore this afternoon and has been all day. O: Miguel was wheeled to therapy by PT aid and completed ther ex consisting of: QD , SAQ, SLR, LAQ, 10x ea with mod assist. Tx consisted of knee mobilization for flexion and extension. Miguel unexpectedly needed to use the restroom and was assisted with min assist x2 and AD to the restroom without his knee immobilizer , x20ft. Miguel was then wheeled to his hospital room and transferred with min assistx1 to his bed. Miguel was given his call light. 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 Miguel requires mod assist with sup to sit and sit to stand transfers and CGA assist with ambulation. Miguel would continue to benefit from skilled therapy. P: Continue POC as tolerated.
[2016-11-16] MEDS: ATORVASTATIN 10 MG TABLET PO SCH (22:00)
[2016-11-16] MEDS: Warfarin 5 MG TAB PO SCH (22:00)
[2016-11-17 04:05] LABS: Hematocrit [HCT] 37.2 % (42.0-52.0); Hemoglobin [HGB] 12.5 g/dL (14.0-18.0); MEAN CORPUSCULAR HEMOGLOBIN 29.6 PG (27-31); MEAN CORPUSCULAR HGB CONC 33.6 g/dL (33-37); MEAN CORPUSCULAR VOLUME 87.9 FL (80-90); MEAN PLATELET VOLUME 10.6 FL (7.4-12.2); RED BLOOD COUNT 4.23 10^6/uL (4.70-6.10)
[2016-11-17 04:33] LABS: BLOOD UREA NITROGEN 14 mg/dL (7-22)
[2016-11-17] MEDS: DIGOXIN 250 MCG TABLET PO SCH (08:07)
[2016-11-17] MEDS: GABAPENTIN 300 MG CAPSULE PO SCH ×3 (08:07→21:19)
[2016-11-17] MEDS: BENAZEPRIL 10 MG TABLET PO SCH (08:07)
[2016-11-17] MEDS: metFORMIN ER 500 MG TABLET PO SCH (08:07)
[2016-11-17] MEDS: METOPROLOL SUCCINATE 100 MG SR 24H TABLET PO SCH (08:07)
[2016-11-17] MEDS: HYDROCHLOROTHIAZIDE 25 MG TABLET PO SCH (08:08)
[2016-11-17] MEDS: HYDROcodone-APAP 7.5 MG-325 MG TABLET PO PRN ×3 (08:08→21:19)
[2016-11-17] MEDS: POTASSIUM CHLORIDE 20 MEQ TAB PO SCH ×2 (08:08→21:19)
[2016-11-17] MEDS: DOCUSATE 100 MG CAPSULE PO SCH ×2 (08:08→21:19)
[2016-11-17] MEDS: NORMAL SALINE 10 ML SYRINGE FLUSH IVP PRN (08:09)
[2016-11-17] MEDS ORDERED: FUROSEMIDE 10 MG/1 ML - 4 ML IVP ONE (09:00)
--- NOTE | 2016-11-17 11:07 | PDOC(PROG) ---
Interval History: Patient is doing great has no complaints Objective : Data - Labs CBC and BMP: 11/17/16 04:02 11/17/16 04:02 Objective : Exam - General General Appearance: Cooperative - Respiratory Respiratory Exam: Clear to Auscultation - Bilaterally, Breathing Non Labored, Normal To Percussion - Cardiovascular Cardiovascular Exam: RRR, No Murmur, No Clicks - GI/Abdominal GI/Abdominal Exam: Non Tender, Non Distended, Soft - Extremities Extremities Exam: No Clubbing Present Additional Extremities Exam Details: Edema definitely improved and his right and left leg still some present on the left secondary to the surgery Assessment and Plan - Patient Problems (1) Status post total left knee replacement Current Visit: Yes Status: Acute Comment: Deferred PTOT and general orthopedic surgery Code(s): Z96.652 - Presence of left artificial knee joint (2) Hypertension Current Visit: Yes Status: Acute Comment: Controlled Code(s): I10 - Essential (primary) hypertension (3) A-fib Current Visit: Yes Status: Acute Comment: Continue home usual home dose of Coumadin pharmacy managing Code(s): I48.91 - Unspecified atrial fibrillation (4) Edema Current Visit: Yes Status: Chronic Comment: Resolved we'll stop Lasix Code(s): R60.9 - Edema, unspecified (5) Hypokalemia Current Visit: Yes Status: Acute Comment: On replacement Code(s): E87.6 - Hypokalemia
--- NOTE | 2016-11-17 15:42 | OT AM DAY ---
Diagnosis : Left Total Knee Arthroplasty AM - Occupational Therapy S: The patient reports he is still having difficulty initiating movement of his leg coming out of bed. He also had difficulty initiating movement of leg while sitting edge of bed. O: Today the patient was supine when the therapist arrived. He used his right leg to lift left leg to bring leg to edge of bed. Once sitting edge of bed, the patient could not lift leg to don clothes; even with use of gold wheel blocker and polisher, he was having difficulty with initiation of movement of knee extension. The patient's toes are moving but he requires increased time and thought process to complete this task. The patient was instructed in the use of the gold wheel blocker and polisher and the sock aide. He continues to forget how to use the sock aide and has it turned over each time he initiates using it. He requires min assist with the gold wheel blocker and polisher as well and he could not lift his left leg in order to get his shorts on. After use of gold wheel blocker and polisher to don shorts and use of sock aide to don socks the patient transferred from sit to stand to pull up shorts and underwear. The patient required min assist for balance and was a little off balance when standing. The patient was able to don his shirt after set up independently. The patient is on four liters of oxygen; toward the end of treatment we tried three liters and his oxygen was remaining above 92%. A: At this time the patient still requires assistance with ADLs. We are noticing some mild cognitive processing difficulties and decreased upper extremity strength when completing functional transfers and ADLs. We are going to add some goals for upper extremity strengthening. We are also talking about placing the patient on a swingbed status as he still requires assistance with transfers, ADLs, and functional ambulation. P: Continue seeing patient BID during the week and one time per day over the weekend for upper extremity strengthening, ADLs, and overall functional mobility. SILVIA
--- NOTE | 2016-11-17 15:50 | OT PM DAY ---
Diagnosis : Left Total Knee Arthroplasty PM - Occupational Therapy S: The patient reports he is feeling slightly better. O: Today we performed upper extremity strengthening exercises including upper body ergometer x3 minutes forward and 3 minutes backward. He then performed red theraband resisted biceps curls, triceps, internal/external rotation, shoulder extension, and scapular squeezes x20 repetitions each. Before exercises the patient transferred from supine to sit with max assist to move left lower extremity. The patient required mod assist to transfer from sit to supine on mat. A: The patient still requires assistance with his lower extremities. The therapist noticed some slight cognitive processing delays during the session today. P: Continue seeing patient BID during the week and one time per day over the weekend for upper extremity strengthening, ADLs, and overall functional mobility. SILVIA
--- NOTE | 2016-11-17 16:17 | PT.PROG ---
Progress Note Progress Note: S: Miguel reports that he continues to have soreness in his knee, more so on the medial aspect. O: Miguel ambulated with AD accompanied by OT to therapy. He was given [id number] to decrease pain and edema. Treatment consisted of QS and SAQ for quad activation and heel slides for flexion ROM, all 10x each, then STS x10 and step ups x5 . Miguel ambulated 150ft back to hospital room. Call light within reach. A: Miguel continues to have quad inhibition and limited flexion and extension ROM and requires mod-max assistance with exercises. Miguel continues to require min assist with transfers and CGA with ambulation. Miguel would continue to benefit from skilled therapy. P: Continue POC.
[2016-11-17] MEDS: Warfarin 5 MG TAB PO SCH (21:19)
[2016-11-17] MEDS: ATORVASTATIN 10 MG TABLET PO SCH (21:19)
[2016-11-18] MEDS: HYDROCHLOROTHIAZIDE 25 MG TABLET PO SCH (08:13)
[2016-11-18] MEDS: BENAZEPRIL 10 MG TABLET PO SCH (08:13)
[2016-11-18] MEDS: DIGOXIN 250 MCG TABLET PO SCH (08:13)
[2016-11-18] MEDS: HYDROcodone-APAP 7.5 MG-325 MG TABLET PO PRN ×2 (08:13→13:08)
[2016-11-18] MEDS: DOCUSATE 100 MG CAPSULE PO SCH ×2 (08:14→21:38)
[2016-11-18] MEDS: POTASSIUM CHLORIDE 20 MEQ TAB PO SCH ×2 (08:14→21:38)
[2016-11-18] MEDS: GABAPENTIN 300 MG CAPSULE PO SCH ×3 (08:14→21:38)
[2016-11-18] MEDS: metFORMIN ER 500 MG TABLET PO SCH (08:14)
[2016-11-18] MEDS: METOPROLOL SUCCINATE 100 MG SR 24H TABLET PO SCH (08:14)
--- NOTE | 2016-11-18 11:55 | ORTHO.PROG ---
Last Taken Vital Signs: Vital Signs - Last Taken Temperature 97.8 F 11/18/16 06:57 Pulse Rate 78 11/18/16 08:13 Respiratory Rate 18 11/18/16 06:57 Blood Pressure 154/89 11/18/16 06:57 Pulse Ox 92 11/18/16 06:57 Subjective: Patient notes to have good pain control though it is uncomfortable during therapy despite taking oral pain medication prior Objective: Examination shows of the patient's incision is clean and dry he has a 1+ effusion but this is soft. In the recliner chair and get him close to full extension short by maybe 5 or 10. Did not attempt a band but discussing with therapy he is getting to about 60-70 but has a fair amount of pain. His motor and sensory exam is nonfocal. Vital Signs (24 hrs) Temp Pulse Pulse Resp BP BP Pulse Ox 11/18/16 08:13 78 11/18/16 06:57 97.8 F 85 18 154/89 92 11/18/16 06:53 16 11/18/16 05:21 164/82 11/18/16 05:01 92 11/18/16 04:13 97.6 F 75 16 143/91 92 11/18/16 00:25 97.2 F 91 18 143/73 94 11/17/16 21:00 98.0 F 75 20 132/78 92 11/17/16 18:43 85 18 11/17/16 16:15 98.8 F 85 18 123/73 91 11/17/16 13:00 97.6 F 77 16 129/71 94 Assessment: Left total knee replacement progressing reasonably well albeit slow Plan: Patient will continue with physical therapy and occupational therapy Continue with ice and elevation and work isometrics with the quadriceps attempting to regain full extension work on heel slides on his own in between therapy sessions. Most likely swing bed status since family lives in [facility]
--- NOTE | 2016-11-18 15:10 | PDOC(PROG) ---
Date and Time of Service: 11/18/2016, 1507 Interval History: Patient complains of constipation. States that his knee pain is present, but controlled. He states that he feels like his quad muscles are quite weak, but his plan at this point is to spend time post hospital stay with his son in [place], [place], before returning home. [place]. No chest pain and no shortness of breath. No nausea or vomiting. Objective : Data - Labs CBC and BMP: 11/17/16 04:02 11/17/16 04:02 Additional Lab Results: Laboratory Results 11/14/16 11/15/16 11/15/16 Range/Units 06:38 04:39 04:39 WBC 9.73 (4.8-10.8) 10^3/uL RBC 4.11 L (4.70-6.10) 10^6/uL Hgb 12.3 L (14.0-18.0) g/dL Hct 36.4 L (42.0-52.0) % MCV 88.6 (80-90) FL MCH 29.9 (27-31) PG MCHC 33.8 (33-37) g/dL RDW Std Deviation 43.8 (39-50) fL RDW Coeff of Aminata 13.8 (11.5-14.5) % Plt Count 235 (140-350) 10*3/uL MPV 11.0 (7.4-12.2) FL PT 10.7 (9.7-11.4) secs INR 1.01 (0.00-5.90) N/A Sodium 135 (135-145) meq/L Potassium 3.5 L (3.8-5.2) meq/L Chloride 101 (98-112) meq/L Carbon Dioxide 26 (23-33) meq/L Anion Gap 8 (5-20) BUN 15 (7-22) mg/dL Creatinine 0.7 (0.70-1.50) mg/dL BUN/Creatinine Ratio 21.42 H (6-20) Glucose 114 H (78-110) mg/dL Calculated Osmolality 281.0 (267-292) mOsm/kg Calcium 9.4 (8.7-10.7) mg/dL 11/15/16 11/16/16 11/16/16 Range/Units 13:27 05:11 05:11 WBC 10.79 (4.8-10.8) 10^3/uL RBC 4.59 L (4.70-6.10) 10^6/uL Hgb 13.5 L (14.0-18.0) g/dL Hct 40.1 L (42.0-52.0) % MCV 87.4 (80-90) FL MCH 29.4 (27-31) PG MCHC 33.7 (33-37) g/dL RDW Std Deviation 43.3 (39-50) fL RDW Coeff of Aminata 13.7 (11.5-14.5) % Plt Count 236 (140-350) 10*3/uL MPV 10.5 (7.4-12.2) FL PT 11.4 (9.7-11.4) secs INR 1.07 (0.00-5.90) N/A Sodium 137 (135-145) meq/L Potassium 3.2 L (3.8-5.2) meq/L Chloride 95 L (98-112) meq/L Carbon Dioxide 31 (23-33) meq/L Anion Gap 11 (5-20) BUN 12 (7-22) mg/dL Creatinine 0.7 (0.70-1.50) mg/dL BUN/Creatinine Ratio 17.14 (6-20) Glucose 167 H (78-110) mg/dL Calculated Osmolality 287.0 (267-292) mOsm/kg Calcium 10.1 (8.7-10.7) mg/dL 11/16/16 11/17/16 11/17/16 Range/Units 05:11 04:02 04:02 WBC 9.56 (4.8-10.8) 10^3/uL RBC 4.23 L (4.70-6.10) 10^6/uL Hgb 12.5 L (14.0-18.0) g/dL Hct 37.2 L (42.0-52.0) % MCV 87.9 (80-90) FL MCH 29.6 (27-31) PG MCHC 33.6 (33-37) g/dL RDW Std Deviation 43.6 (39-50) fL RDW Coeff of Aminata 13.7 (11.5-14.5) % Plt Count 216 (140-350) 10*3/uL MPV 10.6 (7.4-12.2) FL PT 11.2 (9.7-11.4) secs INR 1.06 (0.00-5.90) N/A Sodium 135 (135-145) meq/L Potassium 3.5 L (3.8-5.2) meq/L Chloride 95 L (98-112) meq/L Carbon Dioxide 32 (23-33) meq/L Anion Gap 8 (5-20) BUN 14 (7-22) mg/dL Creatinine 0.7 (0.70-1.50) mg/dL BUN/Creatinine Ratio 20.00 (6-20) Glucose 139 H (78-110) mg/dL Calculated Osmolality 282.0 (267-292) mOsm/kg Calcium 9.8 (8.7-10.7) mg/dL Objective : Exam - General General Appearance: No Acute Distress, Cooperative Additional General Exam Details: Vital Signs (24 hrs) Temp Pulse Pulse Resp BP BP Pulse Ox 11/18/16 12:28 97.9 F 74 18 129/91 94 11/18/16 08:13 78 11/18/16 06:57 97.8 F 85 18 154/89 92 11/18/16 06:53 16 11/18/16 05:21 164/82 11/18/16 05:01 92 11/18/16 04:13 97.6 F 75 16 143/91 92 11/18/16 00:25 97.2 F 91 18 143/73 94 11/17/16 21:00 98.0 F 75 20 132/78 92 11/17/16 18:43 85 18 11/17/16 16:15 98.8 F 85 18 123/73 91 - Eye Eye Exam: No Scleral Icterus - ENT ENT Exam: Mucous Membranes Moist - Respiratory Respiratory Exam: Clear to Auscultation - Bilaterally, Breathing Non Labored - Cardiovascular Cardiovascular Exam: No Murmur, No Clicks, No Gallops, No Rubs, Irregular Rhythm, No JVD - GI/Abdominal GI/Abdominal Exam: Normal Bowel Sounds, Non Tender, Non Distended, Soft - Extremities Extremities Exam: No Clubbing Present, No Edema Present, No Cyanosis Present Additional Extremities Exam Details: Some left knee swelling. Expected for post knee surgery. No calf tenderness. - Neurological Neurological Exam: Alert, Oriented x 3, No Facial Droop, Speech Intact / Clear - Psychiatric Psychiatric Exam: Normal Affect, Normal Mood Assessment and Plan - Patient Problems (1) A-fib Current Visit: Yes Status: Acute Code(s): I48.91 - Unspecified atrial fibrillation Qualifiers: Atrial fibrillation type: chronic Qualified Code(s): I48.2 - Chronic atrial fibrillation (2) Hypertension Current Visit: Yes Status: Acute Code(s): I10 - Essential (primary) hypertension Qualifiers: Hypertension type: essential hypertension Qualified Code(s): I10 - Essential (primary) hypertension (3) Hypokalemia Current Visit: Yes Status: Acute Code(s): E87.6 - Hypokalemia (4) Status post total left knee replacement Current Visit: Yes Status: Acute Code(s): Z96.652 - Presence of left artificial knee joint - Assessment / Plan Additional Assessment/Plan Details: At this time, replace potassium. He is on 40 twice a day, but clearly will require more. Check magnesium tomorrow. Daily PT and INR until INR is therapeutic. Coumadin will service patient's DVT prophylaxis given his need for Coumadin for atrial fibrillation for stroke prevention. Milk of magnesia for bowel movements and enema if necessary. I agree with swing bed, his plan to spend time with his son in [place] is a good plan
[2016-11-18] MEDS ORDERED: Fleet Enema w/Mineral Oil 133ml RECTAL ONE (15:11)
[2016-11-18] MEDS: NORMAL SALINE 10 ML SYRINGE FLUSH IVP PRN (16:14)
[2016-11-18] MEDS: MAGNESIUM 400 MG/5 ML - 30 ML (MILK OF MAGNESIA) PO SCH ×2 (16:16→21:38)
[2016-11-18] MEDS: ATORVASTATIN 10 MG TABLET PO SCH (21:38)
[2016-11-18] MEDS: Warfarin 5 MG TAB PO SCH (21:38)
[2016-11-19] MEDS: MAGNESIUM 400 MG/5 ML - 30 ML (MILK OF MAGNESIA) PO SCH ×2 (03:15→11:52)
[2016-11-19] MEDS: HYDROcodone-APAP 7.5 MG-325 MG TABLET PO PRN ×3 (04:23→14:43)
[2016-11-19 05:41] LABS: BLOOD UREA NITROGEN 16 mg/dL (7-22); BUN/CREATININE RATIO 22.85 (6-20); MAGNESIUM 2.3 mg/dL (1.6-2.4)
--- NOTE | 2016-11-19 10:05 | ORTHO.PROG ---
Last Taken Vital Signs: Vital Signs - Last Taken Temperature 98.3 F 11/19/16 08:31 Pulse Rate 85 11/19/16 08:31 Respiratory Rate 20 11/19/16 08:31 Blood Pressure 178/93 11/19/16 08:31 Pulse Ox 98 11/19/16 08:31 Subjective: Patient notes he is doing reasonably well seems like his pain is getting less and is doing well with the oral pain medication. Objective: Examination shows that the patient able to use a walker to make it from the floor down to physical therapy. Examination of the knee in therapy shows that he has some bruising and ecchymosis about the incision some mild redness but this appears to be more bruise like. No drainage. Extension he is short by about 8 flexion is to about 70 degrees. His sensory exam is intact as well as motor distally. Mild swelling and edema. Laboratory Results 11/19/16 11/19/16 Range/Units 04:05 04:05 PT 16.2 H (9.7-11.4) secs INR 1.52 (0.00-5.90) N/A Sodium 134 L (135-145) meq/L Potassium 4.0 (3.8-5.2) meq/L Chloride 98 (98-112) meq/L Carbon Dioxide 27 (23-33) meq/L Anion Gap 9 (5-20) BUN 16 (7-22) mg/dL Creatinine 0.7 (0.70-1.50) mg/dL BUN/Creatinine Ratio 22.85 H (6-20) Glucose 148 H (78-110) mg/dL Calculated Osmolality 281.0 (267-292) mOsm/kg Calcium 9.5 (8.7-10.7) mg/dL Magnesium 2.3 (1.6-2.4) mg/dL Vital Signs (24 hrs) Temp Pulse Resp BP BP Pulse Ox 11/19/16 08:31 98.3 F 85 20 178/93 98 11/19/16 07:00 18 11/19/16 05:12 94 11/19/16 04:23 98.4 F 98 20 133/89 93 11/18/16 20:46 98.4 F 97 20 125/79 93 11/18/16 19:00 80 18 11/18/16 17:00 97.1 F 80 18 127/68 95 11/18/16 12:28 97.9 F 74 18 129/91 94 Assessment: Left total knee replacement, history of atrial fibrillation Plan: Patient will continue with physical therapy and occupational therapy. He is progressing slowly but his motion prior to surgery was limited and I think he is gaining consistently. We will have him continue with therapy on prison side. I think he really would benefit from twice a day therapy versus as an outpatient I think he will have significant problems and likely require some form of manipulation.
[2016-11-19] MEDS: GABAPENTIN 300 MG CAPSULE PO SCH ×2 (10:26→14:43)
[2016-11-19] MEDS: metFORMIN ER 500 MG TABLET PO SCH (10:26)
[2016-11-19] MEDS: BENAZEPRIL 10 MG TABLET PO SCH (10:29)
[2016-11-19] MEDS: METOPROLOL SUCCINATE 100 MG SR 24H TABLET PO SCH (10:31)
[2016-11-19] MEDS: DOCUSATE 100 MG CAPSULE PO SCH ×2 (10:31→20:14)
[2016-11-19] MEDS: POTASSIUM CHLORIDE 20 MEQ TAB PO SCH ×2 (10:32→20:13)
[2016-11-19] MEDS: HYDROCHLOROTHIAZIDE 25 MG TABLET PO SCH (10:32)
[2016-11-19] MEDS: DIGOXIN 250 MCG TABLET PO SCH (10:33)
--- NOTE | 2016-11-19 13:11 | DI ---
Exam: FILM CXR 11/19/16 at 1137 hrs. Single frontal view chest INDICATION: Hypoxia COMPARISON: None FINDINGS: Heart size upper normal to borderline cardio megaly. Mediastinal contour normal. No venous congestion. No pneumothorax.. Lungs are clear. No pleural effusions. Bony elements are within normal limits for age. No acute osseous abnormality. IMPRESSION: No acute cardiopulmonary disease. Lungs are clear. Heart size upper normal to borderline cardiomegaly. No evidence for congestive heart failure.
[2016-11-19] MEDS ORDERED: ACETAMINOPHEN 325 MG TABLET PO PRN (18:18)
--- NOTE | 2016-11-19 18:18 | PDOC(PROG) ---
Date and Time of Service: 11/19/2016, 1816 Interval History: Patient denied any chest pain, shortness breath, nausea or vomiting today. States that he had a bowel movement around 2:30 last night and feels much better and less constipated. Knee pain is controlled. I spoke with his daughter in depth, and she states that she feels that her dad has had some confusion. She states that there is family history of dementia. We reviewed medications and will eliminate medications or could be more mind altering. And see how the patient does. Objective : Data - Labs CBC and BMP: 11/17/16 04:02 11/19/16 04:05 Additional Lab Results: Laboratory Results 11/14/16 11/15/16 11/15/16 Range/Units 06:38 04:39 04:39 WBC 9.73 (4.8-10.8) 10^3/uL RBC 4.11 L (4.70-6.10) 10^6/uL Hgb 12.3 L (14.0-18.0) g/dL Hct 36.4 L (42.0-52.0) % MCV 88.6 (80-90) FL MCH 29.9 (27-31) PG MCHC 33.8 (33-37) g/dL RDW Std Deviation 43.8 (39-50) fL RDW Coeff of Aminata 13.8 (11.5-14.5) % Plt Count 235 (140-350) 10*3/uL MPV 11.0 (7.4-12.2) FL PT 10.7 (9.7-11.4) secs INR 1.01 (0.00-5.90) N/A Sodium 135 (135-145) meq/L Potassium 3.5 L (3.8-5.2) meq/L Chloride 101 (98-112) meq/L Carbon Dioxide 26 (23-33) meq/L Anion Gap 8 (5-20) BUN 15 (7-22) mg/dL Creatinine 0.7 (0.70-1.50) mg/dL BUN/Creatinine Ratio 21.42 H (6-20) Glucose 114 H (78-110) mg/dL Calculated Osmolality 281.0 (267-292) mOsm/kg Calcium 9.4 (8.7-10.7) mg/dL Magnesium (1.6-2.4) mg/dL 11/15/16 11/16/16 11/16/16 Range/Units 13:27 05:11 05:11 WBC 10.79 (4.8-10.8) 10^3/uL RBC 4.59 L (4.70-6.10) 10^6/uL Hgb 13.5 L (14.0-18.0) g/dL Hct 40.1 L (42.0-52.0) % MCV 87.4 (80-90) FL MCH 29.4 (27-31) PG MCHC 33.7 (33-37) g/dL RDW Std Deviation 43.3 (39-50) fL RDW Coeff of Aminata 13.7 (11.5-14.5) % Plt Count 236 (140-350) 10*3/uL MPV 10.5 (7.4-12.2) FL PT 11.4 (9.7-11.4) secs INR 1.07 (0.00-5.90) N/A Sodium 137 (135-145) meq/L Potassium 3.2 L (3.8-5.2) meq/L Chloride 95 L (98-112) meq/L Carbon Dioxide 31 (23-33) meq/L Anion Gap 11 (5-20) BUN 12 (7-22) mg/dL Creatinine 0.7 (0.70-1.50) mg/dL BUN/Creatinine Ratio 17.14 (6-20) Glucose 167 H (78-110) mg/dL Calculated Osmolality 287.0 (267-292) mOsm/kg Calcium 10.1 (8.7-10.7) mg/dL Magnesium (1.6-2.4) mg/dL 11/16/16 11/17/16 11/17/16 Range/Units 05:11 04:02 04:02 WBC 9.56 (4.8-10.8) 10^3/uL RBC 4.23 L (4.70-6.10) 10^6/uL Hgb 12.5 L (14.0-18.0) g/dL Hct 37.2 L (42.0-52.0) % MCV 87.9 (80-90) FL MCH 29.6 (27-31) PG MCHC 33.6 (33-37) g/dL RDW Std Deviation 43.6 (39-50) fL RDW Coeff of Aminata 13.7 (11.5-14.5) % Plt Count 216 (140-350) 10*3/uL MPV 10.6 (7.4-12.2) FL PT 11.2 (9.7-11.4) secs INR 1.06 (0.00-5.90) N/A Sodium 135 (135-145) meq/L Potassium 3.5 L (3.8-5.2) meq/L Chloride 95 L (98-112) meq/L Carbon Dioxide 32 (23-33) meq/L Anion Gap 8 (5-20) BUN 14 (7-22) mg/dL Creatinine 0.7 (0.70-1.50) mg/dL BUN/Creatinine Ratio 20.00 (6-20) Glucose 139 H (78-110) mg/dL Calculated Osmolality 282.0 (267-292) mOsm/kg Calcium 9.8 (8.7-10.7) mg/dL Magnesium (1.6-2.4) mg/dL 11/19/16 11/19/16 Range/Units 04:05 04:05 WBC (4.8-10.8) 10^3/uL RBC (4.70-6.10) 10^6/uL Hgb (14.0-18.0) g/dL Hct (42.0-52.0) % MCV (80-90) FL MCH (27-31) PG MCHC (33-37) g/dL RDW Std Deviation (39-50) fL RDW Coeff of Aminata (11.5-14.5) % Plt Count (140-350) 10*3/uL MPV (7.4-12.2) FL PT 16.2 H (9.7-11.4) secs INR 1.52 (0.00-5.90) N/A Sodium 134 L (135-145) meq/L Potassium 4.0 (3.8-5.2) meq/L Chloride 98 (98-112) meq/L Carbon Dioxide 27 (23-33) meq/L Anion Gap 9 (5-20) BUN 16 (7-22) mg/dL Creatinine 0.7 (0.70-1.50) mg/dL BUN/Creatinine Ratio 22.85 H (6-20) Glucose 148 H (78-110) mg/dL Calculated Osmolality 281.0 (267-292) mOsm/kg Calcium 9.5 (8.7-10.7) mg/dL Magnesium 2.3 (1.6-2.4) mg/dL Objective : Exam - General General Appearance: No Acute Distress, Cooperative Additional General Exam Details: Vital Signs - Last Taken Temperature 97.1 F 11/19/16 16:38 Pulse Rate 76 11/19/16 16:38 Respiratory Rate 20 11/19/16 16:38 Blood Pressure 139/85 11/19/16 16:38 Pulse Ox 90 11/19/16 16:38 - Eye Eye Exam: No Scleral Icterus - ENT ENT Exam: Mucous Membranes Moist - Respiratory Respiratory Exam: Clear to Auscultation - Bilaterally, Breathing Non Labored - Cardiovascular Cardiovascular Exam: No Murmur, No Clicks, No Gallops, No Rubs, Irregular Rhythm, No JVD - GI/Abdominal GI/Abdominal Exam: Normal Bowel Sounds, Non Tender, Non Distended, Soft - Extremities Extremities Exam: No Clubbing Present, No Edema Present, No Cyanosis Present, Joint Swelling (Left knee swelling is improving. No calf tenderness.) - Neurological Neurological Exam: Alert, Oriented x 3 (Patient seemed oriented on exam.), Normal Gait (Good ambulation with gait with assist.), No Facial Droop, Speech Intact / Clear Assessment and Plan - Patient Problems (1) A-fib Current Visit: Yes Status: Acute Code(s): I48.91 - Unspecified atrial fibrillation Qualifiers: Atrial fibrillation type: chronic Qualified Code(s): I48.2 - Chronic atrial fibrillation (2) Hypertension Current Visit: Yes Status: Acute Code(s): I10 - Essential (primary) hypertension Qualifiers: Hypertension type: essential hypertension Qualified Code(s): I10 - Essential (primary) hypertension (3) Hypokalemia Current Visit: Yes Status: Acute Code(s): E87.6 - Hypokalemia (4) Status post total left knee replacement Current Visit: Yes Status: Acute Code(s): Z96.652 - Presence of left artificial knee joint - Assessment / Plan Additional Assessment/Plan Details: I'll check a digoxin level given the daughter's complaints of confusion and stop anti-medics, Benadryl, and back off on pain medications. That could very well be causing the confusion. It could be that he has underlying dementia. We will have to test for this in the future. I think the patient would be stable from my standpoint to consider going to swing bed tomorrow if he qualifies. Continue PT and OT, continue DVT prophylaxis, and patient has good plan of staying with his son in [place], [place], and hopefully transitioning back home later on after a swing bed and time with family. His [id number] is a nurse practitioner as well.
[2016-11-19] MEDS: ATORVASTATIN 10 MG TABLET PO SCH (20:14)
[2016-11-19] MEDS: Warfarin 5 MG TAB PO SCH (20:14)
[2016-11-20] MEDS: HYDROcodone-APAP 5 MG -325 MG TABLET PO PRN ×2 (04:37→12:59)
[2016-11-20 05:12] LABS: Hematocrit [HCT] 38.8 % (42.0-52.0); Hemoglobin [HGB] 12.9 g/dL (14.0-18.0); MEAN CORPUSCULAR HEMOGLOBIN 29.5 PG (27-31); MEAN CORPUSCULAR HGB CONC 33.2 g/dL (33-37); MEAN CORPUSCULAR VOLUME 88.8 FL (80-90); MEAN PLATELET VOLUME 10.1 FL (7.4-12.2); RED BLOOD COUNT 4.37 10^6/uL (4.70-6.10)
[2016-11-20 05:31] LABS: BLOOD UREA NITROGEN 12 mg/dL (7-22); CHOL/HDL RATIO 3.62 RATIO (0-4.0); SERUM CHOLESTEROL 127 mg/dL (120-200)
[2016-11-20 05:37] LABS: HEMOGLOBIN A1C 7.07 % (4.2-6.0)
[2016-11-20] MEDS: METOPROLOL SUCCINATE 100 MG SR 24H TABLET PO SCH (08:03)
[2016-11-20] MEDS: DIGOXIN 250 MCG TABLET PO SCH (08:03)
[2016-11-20] MEDS: metFORMIN ER 500 MG TABLET PO SCH (08:03)
[2016-11-20] MEDS: BENAZEPRIL 10 MG TABLET PO SCH (08:03)
[2016-11-20] MEDS: HYDROCHLOROTHIAZIDE 25 MG TABLET PO SCH (08:03)
[2016-11-20] MEDS: POTASSIUM CHLORIDE 20 MEQ TAB PO SCH (08:04)
[2016-11-20] MEDS: DOCUSATE 100 MG CAPSULE PO SCH (08:04)
--- NOTE | 2016-11-20 13:22 | ORTHO.PROG ---
Last Taken Vital Signs: Vital Signs - Last Taken Temperature 97.8 F 11/20/16 11:15 Pulse Rate 83 11/20/16 11:15 Respiratory Rate 20 11/20/16 11:15 Blood Pressure 135/81 11/20/16 11:15 Pulse Ox 95 11/20/16 11:15 Subjective: Patient doing well pain well controlled Objective: Dressings clean and dry no evidence of infection. Motor and sensory exam is nonfocal. No calf, popliteal adductor hiatus or thigh pain. Patient close to full extension. Laboratory Results 11/20/16 11/20/16 11/20/16 Range/Units 04:40 04:40 04:40 WBC 9.25 (4.8-10.8) 10^3/uL RBC 4.37 L (4.70-6.10) 10^6/uL Hgb 12.9 L (14.0-18.0) g/dL Hct 38.8 L (42.0-52.0) % MCV 88.8 (80-90) FL MCH 29.5 (27-31) PG MCHC 33.2 (33-37) g/dL RDW Std Deviation 44.1 (39-50) fL RDW Coeff of Aminata 13.9 (11.5-14.5) % Plt Count 332 (140-350) 10*3/uL MPV 10.1 (7.4-12.2) FL Sodium 136 (135-145) meq/L Potassium 4.6 (3.8-5.2) meq/L Chloride 100 (98-112) meq/L Carbon Dioxide 26 (23-33) meq/L Anion Gap 10 (5-20) BUN 12 (7-22) mg/dL Creatinine 0.6 L (0.70-1.50) mg/dL Estimated GFR Aerial Gunner Superintendent BUN/Creatinine Ratio 20.00 (6-20) Glucose 160 H (78-110) mg/dL Mean Blood Glucose 149.431 mg/dL Hemoglobin A1c 7.07 H (4.2-6.0) % Calculated Osmolality 284.0 (267-292) mOsm/kg Calcium 9.8 (8.7-10.7) mg/dL Triglycerides 75 (44-200) mg/dL Cholesterol 127 (120-200) mg/dL LDL Cholesterol, Calc 77.000 mg/dL VLDL Cholesterol 15 (0-40) mg/dL HDL Cholesterol 35 L (40-150) mg/dL Cholesterol/HDL Ratio 3.62 (0-4.0) RATIO Vitamin B12 (239-931) pg/mL Serum Folate (2.76-20.0) NG/ML Digoxin 1.0 (0.8-2.0) ng/mL 11/20/16 Range/Units 04:40 WBC (4.8-10.8) 10^3/uL RBC (4.70-6.10) 10^6/uL Hgb (14.0-18.0) g/dL Hct (42.0-52.0) % MCV (80-90) FL MCH (27-31) PG MCHC (33-37) g/dL RDW Std Deviation (39-50) fL RDW Coeff of Aminata (11.5-14.5) % Plt Count (140-350) 10*3/uL MPV (7.4-12.2) FL Sodium (135-145) meq/L Potassium (3.8-5.2) meq/L Chloride (98-112) meq/L Carbon Dioxide (23-33) meq/L Anion Gap (5-20) BUN (7-22) mg/dL Creatinine (0.70-1.50) mg/dL Estimated GFR BUN/Creatinine Ratio (6-20) Glucose (78-110) mg/dL Mean Blood Glucose mg/dL Hemoglobin A1c (4.2-6.0) % Calculated Osmolality (267-292) mOsm/kg Calcium (8.7-10.7) mg/dL Triglycerides (44-200) mg/dL Cholesterol (120-200) mg/dL LDL Cholesterol, Calc mg/dL VLDL Cholesterol (0-40) mg/dL HDL Cholesterol (40-150) mg/dL Cholesterol/HDL Ratio (0-4.0) RATIO Vitamin B12 626 (239-931) pg/mL Serum Folate 6.36 (2.76-20.0) NG/ML Digoxin (0.8-2.0) ng/mL No increasing redness compared to yesterday around the incision. Assessment: Left total knee replacement overall slow progress with motion, little concerning with flexion and extension. Plan: Continue with physical therapy occupational therapy, pain control, DVT prophylaxis with Coumadin for his atrial fibrillation.
--- NOTE | 2016-11-20 13:37 | PT.PROG ---
Progress Note Progress Note: S. Patient states that he is feeling ok, however is very sore with movement. O. Patient ambulated 175 feet to the therapy gym where he had heat to his knee then performed heel slides, quad sets, and short arc quads all x 10, then used the nu-step x 10 minutes then used the incline board seated for knee flexion. Patient ambulated 175 feet back to his room where he was left in his chair with alarm and call light. A. Patient tolerated therapy fair, he continues to struggle with pain and immobility. He was able to use the nu-step for an active assist stretch his knee , however continues to lack active ROM. Patient would continue to benefit from skilled therapy at this time. P. continue poc.
--- NOTE | 2016-11-20 14:21 | OT AM DAY ---
Diagnosis : Left Total Knee Arthroplasty AM - Occupational Therapy S: The patient reports that he is still having difficulty activating his leg. O: The patient was dressed when the therapist arrived. The patient ambulated with the walker down to therapy; he required min assist to keep his balance at times. The patient still gets a little off balance when he is not paying attention to the actual walking. The patient walked to the ma table where he received an application of moist heat pack x20 minutes including set up followed by micro-current massage to the left knee to reduce edema. The patient performed therapeutic exercises including short arc quads, long arc quads, quad sets, heel slides, ankle flexion/extension and internal/external rotation, and hip abduction. We then had the patient sit edge of mat and work on active flexion/extension. Actively the patient demonstrates -30 degrees of extension to 65 degrees of flexion. Passively the therapist was able to get the patient to -10 degrees of extension to 75 degrees of flexion. The therapist stretched the patient for 20 minutes in flexion and extension. The patient then ambulated back to his room which was approximately 300 feet with min assist. When ambulating the patient does require increased amounts of time and some verbal cues. A: The patient requires verbal cues and sometimes demonstrates some cognitive processing delays with his abilities to follow instructions. The patient is missing active and passive flexion and extension of the knee. He does demonstrate Grade I to II swelling in the knee. The patient was instructed to put his leg down in his chair every hour to two hours in order to work on flexion and extension throughout the day. The patient's RISK AND INSURANCE CONSULTANT was also instructed to walk with the patient a little bit more this afternoon and to encourage him to complete flexion and extension exercises in room every hour to two hours. P: Continue seeing patient BID during the week and one time per day over the weekend until discharge. SILVIA
--- NOTE | 2016-11-20 14:27 | OT AM DAY ---
Diagnosis : Left Total Knee Arthroplasty AM - Occupational Therapy S: The patient reports he is doing a little bit better today. O: Today the patient's knee was slightly red around the incision site. Dr. Redd did take a look at this and thought it was more of a skin irritation vs. an infection. Today we worked on dressing skills with the anatomy and physiology instructor. The patient was able to use anatomy and physiology instructor with min verbal cues. The patient then ambulated down to therapy where he received an application of moist heat pack x20 minutes including set up followed by micro-current massage to the left knee to reduce edema. The patient performed therapeutic exercises including short arc quads, long arc quads, quad sets, heel slides, ankle flexion/extension and internal/external rotation, and hip abduction. We then had the patient sit edge of mat and work on active flexion/extension. Actively while supine the patient demonstrates -8 degrees of extension to 65 degrees of flexion. While in a sitting position the patient actively demonstrated between -20 degrees of extension and 70 degrees of flexion. Passively the therapist was able to get the patient to -6 degrees of extension to 90 degrees of flexion which is a big improvement. The patient then ambulated back to his room with walker which was approximately 300 feet with min assist. When ambulating the patient does require increased amounts of time and some verbal cues. A: The patient's SUCTION DREDGE DUMPING SUPERVISOR was again instructed to perform flexion/extension exercises with the patient every hour to two hours. P: Continue seeing patient BID during the week and one time per day over the weekend until discharge. MTDD
--- NOTE | 2016-11-20 15:08 | OT.PROG ---
Progress Note Progress Note: S: Pt reports he is feeling pretty good. Agrees to participate in cognitive screening. O: Pt seen for cognitive assessment this afternoon. Pt completed the Johnson Cognitive Assessment. Pt scored a 23/30 which falls within the mild cognitive assessment range. Pt performed well with the visuospatial functions, executive functions, attention, and orientation. Pt had more difficulty with delayed recall, language, and naming tasks. Pt also completed bed mobility to include moving supine to sit at EOB independent. Pt completed sit to stands with SBA for safety. Pt also completed toileting task with SBA for safety. A: Pt had some difficulty with cognitive tasks today and reports that it is typical for his performance, however no significant concerns at this time. Pt completed transfers safety. P: Continue POC. SONI Norris
[2016-11-20 16:28] VITALS: BP 168/93; RESP 17; TEMP 97.9; O2SAT 96
--- NOTE | 2016-11-20 16:45 | PT.PROG ---
Progress Note Progress Note: S. Patient stated that he has been hot and perspiring all day, and has had some back pain this afternoon. He reported that the outside of his knee is sore. O. Patient ambulated 175 feet to the therapy gym where he had heat and micro massage to decrease edema. Then performed exercises in the form of; heel slides , quad sets, short arc quads, straight leg raises, sit to stands, seated flexion , long arcs, #1 box step ups all x 10, and nu-step x 7 minutes. Patient ambulated 175 feet back to his room where he was left in bed with alarm and call light. A. Patient tolerated exercise fair this afternoon, He continues to struggle with ROM. Patient has redness and heat around the incision, redness was marked and Dr. Redd and nursing were notified. Patient would continue to benefit from skilled therapy at this time. P. Continue POC.
[2016-11-20] MEDS ORDERED: Warfarin 5 MG TAB PO SCH (19:12)
--- NOTE | 2016-11-20 19:21 | DCSUMMARY ---
Hospitalization Summary Admit Date: 11/14/16 Discharge Date: 11/20/16 Primary Diagnosis:: status post left total knee arthroplasty Hospital Course: This very pleasant 71-year-old male who came in for a left knee replacement performed by Dr. Redd on the . Please see his note for further details of the surgical procedure. The hospital service was consult that for evaluation and management of diabetes, hypertension, and atrial fibrillation. In terms of his knee replacement, his therapy is progressing albeit slowly. He is having some limitations in flexion but is slowly improving and he would benefit from more time on therapy bed so we have asked for swing bed and the patient qualified. The patient's postoperative anemia was well controlled. DVT prophylaxis was accomplished with Coumadin and his INR is therapeutic today at 2.17. He is on this for his atrial fibrillation. We did have some problems with intermittent confusion. There was concern that the patient could have underlying dementia, and I think that it will most likely be better to evaluate this about 2-3 months postoperative and out of the hospital as the patient will be and is more normal setting. That being said, I stopped several medications and the patient was much more alert today prior to discharge to the swing bed. He was on several central acting agents. Patient's pain was well-controlled with hydrocodone. Patient's atrial fibrillation did not cause problems on the hospital floor. The patient's diabetes was well managed, and he remained on his metformin through the hospital stay. Today, he states that his knee pain is well controlled. He is doing better with therapy albeit somewhat slower recovery, he denies chest pain and he denies shortness of breath and he denies nausea or vomiting. He did have some constipation earlier in the hospital stay that is improved. Assessment and Plan: 1. As per discharge assessments noted 2. Disposition: Patient is discharged to the swing bed 3. Condition on discharge, stable and improved. 4. Diet: regular diet/diabetic diet 5. Activities: As per PT and Dr. Redd 6. Follow-Up: 1. Hospital service will continue to follow the patient on the swing bed 2. 7. Medications at the Time of Discharge: Home Medications Medication Instructions Recorded Confirmed Type Atorvastatin Calcium [Lipitor] 1 tab PO QHS tab 09/25/16 11/14/16 History Hydrochlorothiazide 1 tab PO DAILY tab 09/25/16 11/14/16 History Metoprolol Succinate [Toprol Xl] 1 tab PO DAILY tab 09/25/16 11/14/16 History Warfarin Sodium [Coumadin] 1 tab PO DAILY tab 09/25/16 11/14/16 History Acetaminophen [Tylenol] 650 mg PO Q4H PRN tab 11/20/16 Rx Amlodipine Besylate [Norvasc] 10 mg PO DAILY tab 11/20/16 Rx Benazepril HCl [Lotensin] 40 mg PO DAILY tab 11/20/16 Rx Calcium Carbonate [Tums] 1 - 2 tab PO Q4H PRN tab.chew 11/20/16 Rx Docusate Sodium [Colace] 100 mg PO BID cap 11/20/16 Rx HYDROcodone/APAP 5/325 Tab [[place] 1 tab PO Q6H PRN tab 11/20/16 Rx 5/325 Tab] Potassium Chloride [Klor-Con] 40 meq PO BID tab 11/20/16 Rx metFORMIN ER Tab [Glucophage XR 2,000 mg PO DAILY tab 11/20/16 Rx Tab] 8. Time, care, counseling and coordination of care for this discharge is greater than 30 minutes. Exam - Vitals Vital Signs: Vital Signs Temperature 97.9 F Temperature Source Temporal Artery Scan Pulse Rate [Pulse Oximeter] 87 Pulse Rate 72 Respiratory Rate 17 Blood Pressure [Left Arm] 168/93 Blood Pressure [Right Arm] 168/77 Blood Pressure 120/74 Pulse Ox 96 Oxygen Flow Rate 1 Oxygen Delivery Method Nasal Cannula Height 5 ft 10 in Weight 212 lb 12.8 oz - General General Appearance: No Acute Distress, Cooperative - Head Head Exam: Normal Inspection, Normocephalic, Atraumatic - Eye Eye Exam: POSITIVE: No Scleral Icterus - ENT ENT Exam: POSITIVE: Mucous Membranes Moist - Respiratory Respiratory Exam: POSITIVE: Clear to Auscultation - Bilaterally, Breathing Non Labored - Cardiovascular Cardiovascular Exam: POSITIVE: No Murmur, No Clicks, No Gallops, No Rubs, Irregular Rhythm, No JVD - GI/Abdominal GI/Abdominal Exam: POSITIVE: Normal Bowel Sounds, Non Tender, Non Distended, Soft - Extremities Extremities Exam: POSITIVE: No Clubbing Present, No Edema Present, No Cyanosis Present Additional Extremities Exam Details: Swelling around left knee is significantly improved over the last couple of days. No calf tenderness and Homans sign is negative. - Neurological Neurological Exam: POSITIVE: Alert, Oriented x 3, No Facial Droop, Speech Intact / Clear - Psychiatric Psychiatric Exam: POSITIVE: Normal Affect, Normal Mood Data Perinent Studies: Laboratory Results 11/14/16 11/15/16 11/15/16 Range/Units 06:38 04:39 04:39 WBC 9.73 (4.8-10.8) 10^3/uL RBC 4.11 L (4.70-6.10) 10^6/uL Hgb 12.3 L (14.0-18.0) g/dL Hct 36.4 L (42.0-52.0) % MCV 88.6 (80-90) FL MCH 29.9 (27-31) PG MCHC 33.8 (33-37) g/dL RDW Std Deviation 43.8 (39-50) fL RDW Coeff of Aminata 13.8 (11.5-14.5) % Plt Count 235 (140-350) 10*3/uL MPV 11.0 (7.4-12.2) FL PT 10.7 (9.7-11.4) secs INR 1.01 (0.00-5.90) N/A Sodium 135 (135-145) meq/L Potassium 3.5 L (3.8-5.2) meq/L Chloride 101 (98-112) meq/L Carbon Dioxide 26 (23-33) meq/L Anion Gap 8 (5-20) BUN 15 (7-22) mg/dL Creatinine 0.7 (0.70-1.50) mg/dL Estimated GFR BUN/Creatinine Ratio 21.42 H (6-20) Glucose 114 H (78-110) mg/dL Mean Blood Glucose mg/dL Hemoglobin A1c (4.2-6.0) % Calculated Osmolality 281.0 (267-292) mOsm/kg Calcium 9.4 (8.7-10.7) mg/dL Magnesium (1.6-2.4) mg/dL Triglycerides (44-200) mg/dL Cholesterol (120-200) mg/dL LDL Cholesterol, Calc mg/dL VLDL Cholesterol (0-40) mg/dL HDL Cholesterol (40-150) mg/dL Cholesterol/HDL Ratio (0-4.0) RATIO Vitamin B12 (239-931) pg/mL Serum Folate (2.76-20.0) NG/ML Digoxin (0.8-2.0) ng/mL 11/15/16 11/16/16 11/16/16 Range/Units 13:27 05:11 05:11 WBC 10.79 (4.8-10.8) 10^3/uL RBC 4.59 L (4.70-6.10) 10^6/uL Hgb 13.5 L (14.0-18.0) g/dL Hct 40.1 L (42.0-52.0) % MCV 87.4 (80-90) FL MCH 29.4 (27-31) PG MCHC 33.7 (33-37) g/dL RDW Std Deviation 43.3 (39-50) fL RDW Coeff of Aminata 13.7 (11.5-14.5) % Plt Count 236 (140-350) 10*3/uL MPV 10.5 (7.4-12.2) FL PT 11.4 (9.7-11.4) secs INR 1.07 (0.00-5.90) N/A Sodium 137 (135-145) meq/L Potassium 3.2 L (3.8-5.2) meq/L Chloride 95 L (98-112) meq/L Carbon Dioxide 31 (23-33) meq/L Anion Gap 11 (5-20) BUN 12 (7-22) mg/dL Creatinine 0.7 (0.70-1.50) mg/dL Estimated GFR BUN/Creatinine Ratio 17.14 (6-20) Glucose 167 H (78-110) mg/dL Mean Blood Glucose mg/dL Hemoglobin A1c (4.2-6.0) % Calculated Osmolality 287.0 (267-292) mOsm/kg Calcium 10.1 (8.7-10.7) mg/dL Magnesium (1.6-2.4) mg/dL Triglycerides (44-200) mg/dL Cholesterol (120-200) mg/dL LDL Cholesterol, Calc mg/dL VLDL Cholesterol (0-40) mg/dL HDL Cholesterol (40-150) mg/dL Cholesterol/HDL Ratio (0-4.0) RATIO Vitamin B12 (239-931) pg/mL Serum Folate (2.76-20.0) NG/ML Digoxin (0.8-2.0) ng/mL 11/16/16 11/17/16 11/17/16 Range/Units 05:11 04:02 04:02 WBC 9.56 (4.8-10.8) 10^3/uL RBC 4.23 L (4.70-6.10) 10^6/uL Hgb 12.5 L (14.0-18.0) g/dL Hct 37.2 L (42.0-52.0) % MCV 87.9 (80-90) FL MCH 29.6 (27-31) PG MCHC 33.6 (33-37) g/dL RDW Std Deviation 43.6 (39-50) fL RDW Coeff of Aminata 13.7 (11.5-14.5) % Plt Count 216 (140-350) 10*3/uL MPV 10.6 (7.4-12.2) FL PT 11.2 (9.7-11.4) secs INR 1.06 (0.00-5.90) N/A Sodium 135 (135-145) meq/L Potassium 3.5 L (3.8-5.2) meq/L Chloride 95 L (98-112) meq/L Carbon Dioxide 32 (23-33) meq/L Anion Gap 8 (5-20) BUN 14 (7-22) mg/dL Creatinine 0.7 (0.70-1.50) mg/dL Estimated GFR BUN/Creatinine Ratio 20.00 (6-20) Glucose 139 H (78-110) mg/dL Mean Blood Glucose mg/dL Hemoglobin A1c (4.2-6.0) % Calculated Osmolality 282.0 (267-292) mOsm/kg Calcium 9.8 (8.7-10.7) mg/dL Magnesium (1.6-2.4) mg/dL Triglycerides (44-200) mg/dL Cholesterol (120-200) mg/dL LDL Cholesterol, Calc mg/dL VLDL Cholesterol (0-40) mg/dL HDL Cholesterol (40-150) mg/dL Cholesterol/HDL Ratio (0-4.0) RATIO Vitamin B12 (239-931) pg/mL Serum Folate (2.76-20.0) NG/ML Digoxin (0.8-2.0) ng/mL 11/19/16 11/19/16 11/20/16 Range/Units 04:05 04:05 04:40 WBC (4.8-10.8) 10^3/uL RBC (4.70-6.10) 10^6/uL Hgb (14.0-18.0) g/dL Hct (42.0-52.0) % MCV (80-90) FL MCH (27-31) PG MCHC (33-37) g/dL RDW Std Deviation (39-50) fL RDW Coeff of Aminata (11.5-14.5) % Plt Count (140-350) 10*3/uL MPV (7.4-12.2) FL PT 16.2 H (9.7-11.4) secs INR 1.52 (0.00-5.90) N/A Sodium 134 L (135-145) meq/L Potassium 4.0 (3.8-5.2) meq/L Chloride 98 (98-112) meq/L Carbon Dioxide 27 (23-33) meq/L Anion Gap 9 (5-20) BUN 16 (7-22) mg/dL Creatinine 0.7 (0.70-1.50) mg/dL Estimated GFR BUN/Creatinine Ratio 22.85 H (6-20) Glucose 148 H (78-110) mg/dL Mean Blood Glucose 149.431 mg/dL Hemoglobin A1c 7.07 H (4.2-6.0) % Calculated Osmolality 281.0 (267-292) mOsm/kg Calcium 9.5 (8.7-10.7) mg/dL Magnesium 2.3 (1.6-2.4) mg/dL Triglycerides (44-200) mg/dL Cholesterol (120-200) mg/dL LDL Cholesterol, Calc mg/dL VLDL Cholesterol (0-40) mg/dL HDL Cholesterol (40-150) mg/dL Cholesterol/HDL Ratio (0-4.0) RATIO Vitamin B12 (239-931) pg/mL Serum Folate (2.76-20.0) NG/ML Digoxin (0.8-2.0) ng/mL 11/20/16 11/20/16 11/20/16 Range/Units 04:40 04:40 04:40 WBC 9.25 (4.8-10.8) 10^3/uL RBC 4.37 L (4.70-6.10) 10^6/uL Hgb 12.9 L (14.0-18.0) g/dL Hct 38.8 L (42.0-52.0) % MCV 88.8 (80-90) FL MCH 29.5 (27-31) PG MCHC 33.2 (33-37) g/dL RDW Std Deviation 44.1 (39-50) fL RDW Coeff of Aminata 13.9 (11.5-14.5) % Plt Count 332 (140-350) 10*3/uL MPV 10.1 (7.4-12.2) FL PT (9.7-11.4) secs INR (0.00-5.90) N/A Sodium 136 (135-145) meq/L Potassium 4.6 (3.8-5.2) meq/L Chloride 100 (98-112) meq/L Carbon Dioxide 26 (23-33) meq/L Anion Gap 10 (5-20) BUN 12 (7-22) mg/dL Creatinine 0.6 L (0.70-1.50) mg/dL Estimated GFR Coat Maker BUN/Creatinine Ratio 20.00 (6-20) Glucose 160 H (78-110) mg/dL Mean Blood Glucose mg/dL Hemoglobin A1c (4.2-6.0) % Calculated Osmolality 284.0 (267-292) mOsm/kg Calcium 9.8 (8.7-10.7) mg/dL Magnesium (1.6-2.4) mg/dL Triglycerides 75 (44-200) mg/dL Cholesterol 127 (120-200) mg/dL LDL Cholesterol, Calc 77.000 mg/dL VLDL Cholesterol 15 (0-40) mg/dL HDL Cholesterol 35 L (40-150) mg/dL Cholesterol/HDL Ratio 3.62 (0-4.0) RATIO Vitamin B12 626 (239-931) pg/mL Serum Folate 6.36 (2.76-20.0) NG/ML Digoxin 1.0 (0.8-2.0) ng/mL 11/20/16 Range/Units 13:24 WBC (4.8-10.8) 10^3/uL RBC (4.70-6.10) 10^6/uL Hgb (14.0-18.0) g/dL Hct (42.0-52.0) % MCV (80-90) FL MCH (27-31) PG MCHC (33-37) g/dL RDW Std Deviation (39-50) fL RDW Coeff of Aminata (11.5-14.5) % Plt Count (140-350) 10*3/uL MPV (7.4-12.2) FL PT 23.2 H (9.7-11.4) secs INR 2.17 (0.00-5.90) N/A Sodium (135-145) meq/L Potassium (3.8-5.2) meq/L Chloride (98-112) meq/L Carbon Dioxide (23-33) meq/L Anion Gap (5-20) BUN (7-22) mg/dL Creatinine (0.70-1.50) mg/dL Estimated GFR BUN/Creatinine Ratio (6-20) Glucose (78-110) mg/dL Mean Blood Glucose mg/dL Hemoglobin A1c (4.2-6.0) % Calculated Osmolality (267-292) mOsm/kg Calcium (8.7-10.7) mg/dL Magnesium (1.6-2.4) mg/dL Triglycerides (44-200) mg/dL Cholesterol (120-200) mg/dL LDL Cholesterol, Calc mg/dL VLDL Cholesterol (0-40) mg/dL HDL Cholesterol (40-150) mg/dL Cholesterol/HDL Ratio (0-4.0) RATIO Vitamin B12 (239-931) pg/mL Serum Folate (2.76-20.0) NG/ML Digoxin (0.8-2.0) ng/mL Radiologic data [address] [facility] [place] [address] [address] PH: DD: [phone] FAX: [phone] ~DIAGNOSTIC IMAGING REPORT~ Patient: Miguel Randolph : 1945 Sex: M Age: 71 Exam Name: XR KNEE 1 OR 2 VWS Exam Date: 11/14/16 Report # : [id number] CPT Code: 67651 EMR/MR #: [id number] Ordering: JUAN REDD Admiting: Juan Redd MD. Primary: Miguel Ware MD. Attending: uJan Redd MD. Signed XR KNEE 1 OR 2 VWS,11/14/2016 11:15 AM: Clinical History: Total knee arthroplasty. Previous Exam: September 25, 2016 Findings: 2 views of the left knee are obtained, and demonstrate postsurgical changes consistent with a left total knee arthroplasty. There is some air within the superior patellar bursa. Peripheral vascular calcifications are noted. No fractures are seen. Impression: Postsurgical changes consistent with recent left total knee arthroplasty. Dictated By: 11/15/16 0828 BARBIE QUINONES MD. Signed By: 11/15/16 0836 BARBIE QUINONES MD. [address] [place] [address] PH: DD: [phone] FAX: [phone] ~DIAGNOSTIC IMAGING REPORT~ Patient: Miguel Randolph : 1945 Sex: M Age: 71 Exam Name: XR CXR 1VW Exam Date: 11/19/16 Report # : [id number] CPT Code: 07749 EMR/MR #: [id number] Ordering: WOODY SMITH Admiting: Juan Redd MD. Primary: Miguel Ware MD. Attending: Juan Redd MD. Signed Exam: FILM CXR 11/19/16 at 1137 hrs. Single frontal view chest INDICATION: Hypoxia COMPARISON: None FINDINGS: Heart size upper normal to borderline cardio megaly. Mediastinal contour normal. No venous congestion. No pneumothorax.. Lungs are clear. No pleural effusions. Bony elements are within normal limits for age. No acute osseous abnormality. IMPRESSION: No acute cardiopulmonary disease. Lungs are clear. Heart size upper normal to borderline cardiomegaly. No evidence for congestive heart failure. Dictated By: Marc Anderson MD Signed By: 11/19/16 1311 Marc Anderson MD The above radiologic data are conveyed for the convenience of transfer of information to the physician that will be caring for this patient. Patient Problems - Patient Problem List (1) Status post total left knee replacement Current Visit: Yes Status: Acute Code(s): Z96.652 - Presence of left artificial knee joint Category: Medical (2) A-fib Current Visit: Yes Status: Acute Code(s): I48.91 - Unspecified atrial fibrillation Qualifiers: Atrial fibrillation type: chronic Qualified Code(s): I48.2 - Chronic atrial fibrillation Category: Medical (3) Hypertension Current Visit: Yes Status: Acute Code(s): I10 - Essential (primary) hypertension Qualifiers: Hypertension type: essential hypertension Qualified Code(s): I10 - Essential (primary) hypertension Category: Medical (4) Hypokalemia Current Visit: Yes Status: Acute Code(s): E87.6 - Hypokalemia Category: Medical
--- NOTE | 2016-11-21 12:45 | OT AM DAY ---
Diagnosis : Left Total Knee Arthroplasty AM - Occupational Therapy S: The patient reports he is still struggling with dressing himself. O: Today the patient was sitting in chair upon the therapist's arrival. Today we really focused on using the decal maker to doff his socks; the patient needed min verbal cues in order to do this independently. We then practiced using the sock aide. The patient was able to put on his socks independently with the sock aide with increased time. The patient is still struggling to lift his left foot in order to pull the sock aide on the foot itself. The patient still requires max assist to don sock on left side with use of sock aide and he still doesn't have the mobility to reach down and put on his sock. We tried different methods, even having his right leg push his left leg up, but this causes too much pain. A: The patient is still struggling with use of sock aide. He is still having difficulty with active movement of his left knee. He is still having some cognitive processing issues so we are going to try to make some rote routine activities for the patient. P: Continue seeing patient BID during the week and one time per day over the weekend for upper extremity strengthening, ADLs, and overall functional mobility. SILVIA
== END 2016-11-20 19:00 | DRG 470 ==
LOC: OPS 05:56 → MED/SURG 12:07
PROVIDERS: ADMIT Orthopaedic Surgery; ATTEND Orthopaedic Surgery